=== PATIENT | male | born 1950 | race Caucasian/White ===

== ENCOUNTER 2021-08-30 06:56 | Day surgery (SDC) | payer BC, MEDICARE ==
[2021-08-28 15:06] VITALS: BMI 27.9
[2021-08-30] MEDS ORDERED: Fentanyl 100 MCG/2 ML VIAL ONE ×2 (07:01→09:45)
[2021-08-30] MEDS ORDERED: Dexmedetomidine 200 MCG/2 ML VIAL ONE (07:01)
[2021-08-30] MEDS ORDERED: AFRIN NASAL MIST 15 ML BOT ONE ×2 (07:41→07:51)
[2021-08-30] MEDS ORDERED: Bacitracin Zinc Ointment 30 gm TUBE ONE (07:51)
[2021-08-30] MEDS ORDERED: Xylocaine 1% w/ Epi 1:100K 10 ML VIAL ONE ×2 (07:51)
[2021-08-30] MEDS ORDERED: Dexamethasone 20 MG/5 ML VIAL ONE (08:17)
[2021-08-30] MEDS ORDERED: Rocuronium Bromide 10 MG/ML (10ML VIAL) ONE (08:17)
[2021-08-30] MEDS ORDERED: PROPOFOL 200 MG/20 ML VIAL ONE (08:17)
[2021-08-30] MEDS ORDERED: Ondansetron PF 4 MG/2 ML Vial ONE (08:17)
[2021-08-30] MEDS ORDERED: Lidocaine 1% PF 5 ML VIAL ONE (08:17)
[2021-08-30 08:22] LABS: Hemoglobin 14.7 g/dL (14.0-18.0)
[2021-08-30 08:51] LABS: Anion Gap 11 mmol/L (10-20); BUN (Urea Nitrogen) 21 mg/dL (8.4-25.7); Calc. Creatinine Clearance 86 mL/min (70-130); Carbon Dioxide 23 mmol/L (23-31); Chloride 111 mmol/L (98-107); Glucose 101 mg/dL (80-115); Potassium 3.9 mmol/L (3.5-5.1); Sodium 141 mmol/L (136-145)
[2021-08-30] MEDS ORDERED: Hydrocodone-Acetamin 15 ML UDCUP ONE (10:34)
== END 2021-08-30 11:22 | disposition home or self-care (01) ==
LOC: SDC 06:56
PROVIDERS: ATTEND Otolaryngology Plastic Surgery within the Head & Neck
PROC: 099Q8ZZ Drainage of Right Maxillary Sinus, Via Natural or Artificial Opening Endoscopic (ICD-10-PCS; principal; 2021-08-30)
PROC: 09TL0ZZ Resection of Nasal Turbinate, Open Approach (ICD-10-PCS; principal; 2021-08-30)
PROC: 099S8ZZ Drainage of Right Frontal Sinus, Via Natural or Artificial Opening Endoscopic (ICD-10-PCS; principal; 2021-08-30)
PROC: 09TV8ZZ Resection of Left Ethmoid Sinus, Via Natural or Artificial Opening Endoscopic (ICD-10-PCS; principal; 2021-08-30)
PROC: 099T8ZZ Drainage of Left Frontal Sinus, Via Natural or Artificial Opening Endoscopic (ICD-10-PCS; principal; 2021-08-30)
PROC: 099R8ZZ Drainage of Left Maxillary Sinus, Via Natural or Artificial Opening Endoscopic (ICD-10-PCS; principal; 2021-08-30)
PROC: 09SM0ZZ Reposition Nasal Septum, Open Approach (ICD-10-PCS; principal; 2021-08-30)
PROC: 09TU8ZZ Resection of Right Ethmoid Sinus, Via Natural or Artificial Opening Endoscopic (ICD-10-PCS; principal; 2021-08-30)
DX: J32.4 Chronic pansinusitis (principal); J34.2 Deviated nasal septum; J34.3 Hypertrophy of nasal turbinates; J34.89 Other specified disorders of nose and nasal sinuses; H81.09 Meniere's disease, unspecified ear; J43.9 Emphysema, unspecified; F17.200 Nicotine dependence, unspecified, uncomplicated
CPT/HCPCS: 80048; 85014; 85018; 93005; 93010; J1100; J2405; J2704; J3010